=== PATIENT | female | born 1985 | race Caucasian/White ===

== ENCOUNTER 2016-09-28 19:49 | Emergency (ER) | payer OTHER ==
--- NOTE | ~2016-09-28 | EKG ---
PATIENT: ISA CASTREJON UNIT #: [id number] Ventricular Rate: 89 BPM Atrial Rate: 89 BPM P-R Interval: 130 ms QRS Duration: 74 ms Q-T Interval: 348 ms QTC Calculation(Bezet): 423 ms P [place]: 53 degrees Calculated R [place]: 73 degrees Calculated T [place]: 29 degrees Diagnosis Line: Normal sinus rhythm Diagnosis Line: Nonspecific ST abnormality Diagnosis Line: Abnormal ECG Diagnosis Line: No previous ECGs available Diagnosis Line: Confirmed by JEAN HOWELL MD ([id number]) on Diagnosis Line: 10/01/2016 8:36:38 AM INTERPRETING MD: DANTE BURGOS
--- NOTE | ~2016-09-28 | CT71 ---
[facility] A Service [facility] RADIOLOGY TEXT RESULTS PATIENT: ISA CASTREJON LOCATION: SED : 83 UNIT #: [id number] AGE: [address]: Travis Soto MD SEX: F ORDER DR: [id number] [place] [id number] [id number] E MR#: [id number] #: [id number] NAME: ISA CASTREJON. : 1985 SEX: F STUDY DATE/TIME: 09/28/2016 21:40 UNIT: SED ROOM: STUDY DESCRIPTION: CT Head Wo Contrast Attending Physician: Travis Soto M.D. Ordering Physician: Travis Soto M.D. Primary Care Physician: Primary Care Physician No MEDICAL IMAGING REPORT This report is preliminary unless electronic signature is present. EXAM CT head without contrast, 09/28/2016 HISTORY 31-year-old female with syncopal episode and headache today. COMPARISON None. TECHNIQUE Routine unenhanced axial images performed through the brain. This CT exam was performed with one or more of the following radiation dose reduction techniques: automatic exposure control, adjustment of mA and/or kV according to patient size, and iterative reconstruction. FINDINGS No hemorrhage, acute infarction, mass lesion, or abnormal extraaxial fluid collection. No midline shift or focal mass effect. Ventricular system normal in size and configuration. No acute bony abnormality. Visualized paranasal sinuses and mastoid air cells are clear. IMPRESSION No acute intracranial abnormality. Dictated by... Cayden Salmeron M.D. THIS IS AN ELECTRONICALLY VERIFIED REPORT Cayden Salmeron M.D. at 09/29/2016 6:15 PM [facility] A Service [facility] RADIOLOGY TEXT RESULTS PATIENT: ISA CASTREJON LOCATION: SED : 83 UNIT #: [id number] AGE: [address]: Travis Soto MD SEX: F ORDER DR: Jordana TD: 09/28/2016 23:58 JOB #: [id number] MEDICAL IMAGING REPORT Page 1 of 1
[2016-09-28] MEDS ORDERED: MIRENA IUD (20:05)
[2016-09-28 21:18] LABS: BASOPHIL% 0.5 % (0-2.5); EOSINOPHIL% 0.3 % (0.0-7.0); HEMATOCRIT 41.3 % (35.0-45.0); HEMOGLOBIN 14.2 gm/dL (12.0-16.0); LYMPHOCYTE# 0.8 X10e3 (1.0-3.5); LYMPHOCYTE% 21.4 % (17.0-45.0); MEAN CELL VOLUME 86.9 FL (83-96); MEAN CORPUSCULAR HEMOGLOBIN 29.8 PG (28-34); MEAN CORPUSCULAR HGB CONC 34.3 g/dL (30-36); MEAN PLATELET VOLUME 7.3 FL (6.5-11.5); MONOCYTE# 0.3 X10e3 (0-1.0); MONOCYTE% 8.4 % (3.0-12.0); NEUTROPHIL# 2.6 X10e3 (1.5-7.1); NEUTROPHIL% 69.4 % (40-75); PLATELET COUNT 210 X10e3 (140-420); RED BLOOD COUNT 4.75 X10e (3.90-5.30); WHITE BLOOD COUNT 3.8 X10e3 (4.0-10.5)
[2016-09-28 21:19] LABS: DIFF IND NO
[2016-09-28 21:34] LABS: ALBUMIN SERUM 4.1 g/dL (3.5-5.0); BILIRUBIN, DIRECT 0.1 mg/dL (0.0-0.2); BILIRUBIN,INDIRECT 0.3 mg/dL (0.0-0.9); BILIRUBIN,TOTAL 0.4 mg/dL (0.2-2.0); CALCIUM SERUM 8.8 mg/dL (8.4-10.2); CREATININE SERUM 0.7 mg/dL (0.6-1.4); GLOM FILT RATE Estimated 113.8 mL/min (>60); POTASSIUM 3.7 mmol/L (3.5-5.1); PROTEIN TOTAL SERUM 7.3 g/dL (6.0-8.3)
== END 2016-09-28 22:11 | disposition home or self-care (01) ==
LOC: SED 19:49
PROVIDERS: Emergency Medicine
DX: R55 Syncope and collapse (principal)
CPT/HCPCS: 36415; 70450; 80048; 80076; 84703; 85025; 93005; 99284